=== PATIENT | male | born 1970 | race Asian ===

== ENCOUNTER 2018-08-25 02:19 | Emergency (ER) | payer OTHER ==
[~2018-08-25] VITALS: Ht 170.2 cm; Wt 68.0 kg
[2018-08-25 02:25] VITALS: BP 117/79
--- NOTE | 2018-08-25 02:25 | NUR ---
EKG PERFORMED AT BEDSIDE. PT COVERED IN GOWN DURING PROCEDURE
--- NOTE | 2018-08-25 02:25 | NUR ---
TO BED # 04 AMBULATORY, REPORT GIVEN TO ALEJANDRINA CARDENAS
--- NOTE | 2018-08-25 02:35 | NUR ---
48 YO M BIB SELF PRESENTS TO THE ED CO 7/10 SHARP NON-RADIATING CHEST PAIN. -- PT APPEARS UNCOMFORTABLE. SKIN IS PINK, DRY, WARM. CAP REFILL BRISK, >3 SEC. BREATHING EVEN/UNLABORED. -- DENIES SOB, N/V. -- PMH: PNEUMOTHORAX- 2003 -- RX: DENIES PT POSITIONED FOR COMFORT. HOB ELEVATED. SIDE RAIL UP X1. BED IN LOWEST POSITION. VSS. NO APPARENT DISTRESS AT THIS TIME. PT ON BRICK [employer] BURNER. WILL CONTINUE TO MONITOR.
--- NOTE | 2018-08-25 02:39 | NUR ---
Dr. Ayala evaluating patient at bedside.
[2018-08-25] MEDS ORDERED: KETOROLAC 15 MG/ML VIAL IVP ONE (02:55)
[2018-08-25] MEDS ORDERED: ASPIRIN 81 MG TAB.CHEW PO ONE (02:55)
[2018-08-25] MEDS ORDERED: NACL 0.9% 1,000 ML IV ONE (02:55)
--- NOTE | 2018-08-25 02:56 | NUR ---
XRAY AT BEDSIDE.
[2018-08-25 03:09] LABS: BASOPHILS % (AUTO) 0.4 % (0.0-2.0); EOSINOPHILS # (AUTO) 0.5 K/uL (0-0.4); EOSINOPHILS % (AUTO) 7.4 % (0.0-4.0); HEMATOCRIT 41.2 % (36-52); HEMOGLOBIN 13.9 g/dL (12.0-18.0); LYMPHOCYTES # (AUTO) 1.8 K/uL (2.0-11.5); LYMPHOCYTES % (AUTO) 29.1 % (20.5-51.1); MEAN CORPUSCULAR HEMOGLOBIN 28 pg (27-31); MEAN CORPUSCULAR HGB CONC 34 g/dL (33-37); MEAN CORPUSCULAR VOLUME 83.2 fL (80-94); MONOCYTES # (AUTO) 0.4 K/uL (0.8-1.0); MONOCYTES % (AUTO) 7.4 % (1.7-9.3); NEUTROPHILS # (AUTO) 3.4 K/uL (1.8-7.7); NEUTROPHILS % (AUTO) 55.7 % (42.2-75.2); PLATELET COUNT (AUTO) 164 K/uL (140-450); RED BLOOD CELL COUNT(AUTO) 4.95 MIL/uL (4.20-6.10); RED CELL DISTRIBUTION WIDTH 13.7 % (11.6-13.7); WHITE BLOOD COUNT (AUTO) 6.1 K/uL (4.8-10.8)
[2018-08-25 03:18] LABS: ANION GAP 13.5 (8-16); CARBON DIOXIDE 26.9 mmol/L (21-32); POTASSIUM 3.4 mmol/L (3.5-5.1)
[2018-08-25 03:24] LABS: ALBUMIN 3.8 g/dL (3.4-5.0); TOTAL BILIRUBIN 1.1 mg/dL (0.0-1.0)
--- NOTE | 2018-08-25 03:45 | NUR ---
IV removed, catheter intact and site benign. Applied folded 4x4 gauze and tape to stop bleeding.
[2018-08-25 03:47] VITALS: BP 116/82
== END 2018-08-25 03:47 | disposition home or self-care (01) ==
LOC: MED 02:19
DX: S29.011A Strain of muscle and tendon of front wall of thorax, initial encounter (principal); X58.XXXA Exposure to other specified factors, initial encounter; Y93.89 Activity, other specified; Y92.89 Other specified places as the place of occurrence of the external cause; Y99.8 Other external cause status
CPT/HCPCS: 36415; 71045; 80053; 84484; 85025; 93005; 96374; 99284; J1885; J7030; Q0092